=== PATIENT | male | born 1995 | race Caucasian/White ===

== ENCOUNTER 2019-02-01 20:23 | Emergency (ER) | payer SELFPAY ==
[~2019-02-01] VITALS: Ht 185.4 cm; Wt 129.3 kg
[2019-02-01] MEDS ORDERED: ACETAMINOPHEN 325 MG TAB ONE (21:08)
[2019-02-01] MEDS ORDERED: ACETAMINOPHEN 325 MG TAB PO ONE (21:15)
[2019-02-01 22:02] LABS: BILIRUBIN,URINE NEGATIVE (NEGATIVE); CLARITY,URINE SL CLOUDY (CLEAR); COLOR,URINE YELLOW (YELLOW); KETONES,URINE 1+ (NEGATIVE); LEUKOCYTE ESTERASE ,URINE NEGATIVE (NEGATIVE); NITRITE,URINE NEGATIVE (NEGATIVE); PROTEIN,URINE DIPSTICK TRACE (NEGATIVE); URINE UROBILINOGEN 0.2 mg/dL (0.2 - 1)
[2019-02-01 22:06] LABS: STREPTOCOCCUS GRP A ANTIGEN NEGATIVE (NEGATIVE)
[2019-02-01 22:16] LABS: INFLUENZAE A&B ANTIGEN (RAPID) NEGATIVE (NEGATIVE)
[2019-02-01 22:27] LABS: BACTERIA,URINE FEW /HPF; RBC,URINE 0-5 /HPF (0-5); WBC,URINE (MAN) 0-5 /HPF (0-5)
[2019-02-01 22:28] LABS: EPITHELIAL CELLS,URINE FEW /LPF; MUCUS,URINE MANY (RARE)
--- NOTE | 2019-02-01 22:33 | Diagnostic Imaging Report ---
EXAMINATION: PA and lateral views of the chest. COMPARISON: None CLINICAL HISTORY: Back pain, numbness, sore throat DISCUSSION: Lines/tubes: None. Lungs: The lungs are well inflated and clear. There is no evidence of pneumonia or pulmonary edema. Pleura: There is no pleural effusion or pneumothorax. Heart and mediastinum: Cardiomediastinal silhouette is unremarkable. Pulmonary vasculature is normal. Bones and soft tissues: No acute bony abnormalities. IMPRESSION: No acute cardiopulmonary abnormalities. Signed by: Dr. Ketan Velasquez M.D. on 02/01/2019 10:30 PM
== END 2019-02-01 23:57 | disposition home or self-care (01) ==
LOC: ER 20:23
DX: R50.9 Fever, unspecified (principal); B34.9 Viral infection, unspecified
CPT/HCPCS: 71046; 81001; 83518; 87070; 87086; 87400; 99284

== ENCOUNTER → 2019-12-12 | Outpatient (CLI) | payer OTHER ==
[~2019-12-12] MED LIST: IOPAMIDOL 370 MG/ML 200 ML INFUS..BTL INJ ONE; SODIUM CHLORIDE 0.9% 50ML 50 ML ONE
--- NOTE | 2019-12-12 09:18 | Diagnostic Imaging Report ---
EXAM: CT Abdomen and Pelvis WITH intravenous contrast INDICATION: Right abdominal pain COMPARISON: None. TECHNIQUE: Abdomen and pelvis were scanned utilizing a multidetector helical scanner from the lung base to the pubic symphysis after administration of IV contrast. Coronal and sagittal reformations were obtained. Routine protocol was performed. Scan was performed during portal venous phase. IV CONTRAST: 100mL of Isovue 370 ORAL CONTRAST: Water RADIATION DOSE: Total DLP: 918 mGy*cm Dose modulation, iterative reconstruction, and/or weight based adjustment of the mA/kV was utilized to reduce the radiation dose to as low as reasonably achievable. FINDINGS: LOWER THORAX: Normal. HEPATOBILIARY: Diffuse hepatic steatosis. No focal liver lesion. No biliary ductal dilation. Unremarkable gallbladder. SPLEEN: No splenomegaly. Splenules. PANCREAS: No focal masses or ductal dilatation. ADRENALS: No adrenal nodules. KIDNEYS/URETERS: No hydronephrosis, stones, or solid mass lesions. PELVIC ORGANS/BLADDER: Unremarkable. PERITONEUM / RETROPERITONEUM: No free air or fluid. LYMPH NODES: No lymphadenopathy. VESSELS: Unremarkable. GI TRACT: Mild diverticulosis. No CT evidence of diverticulitis. No abnormal bowel thickening. No bowel obstruction. BONES AND SOFT TISSUES: Unremarkable. IMPRESSION: Mild diverticulosis without CT evidence of diverticula at his. Diffuse hepatic steatosis. Signed by: Tonja Hennessy MD on 12/12/2019 9:15 AM
== END ==
LOC: CT 07:37
PROVIDERS: ATTEND Internal Medicine Gastroenterology
DX: R10.9 Unspecified abdominal pain (principal); K92.1 Melena
CPT/HCPCS: 74177; Q9967

== ENCOUNTER → 2019-12-15 | Day surgery (SDC) | payer OTHER ==
[~2019-12-15] MED LIST changes: +FENTANYL CITRATE/PF 100MCG/2 ML INJ ONE; +HYOSCYAMINE 0.125 MG TAB ONE; -IOPAMIDOL 370 MG/ML 200 ML INFUS..BTL INJ ONE; +KETAMINE HCL INJ 50 MG/ML 10 ML VIAL ONE; +LIDOCAINE HCL 2% LOCAL INJ 5 ML SDV VIAL INJ ONE; +METOCLOPRAMIDE HCL 10 MG/2ML VIAL ONE; +MIDAZOLAM HCL 2 MG/2 ML VIAL ONE; +PANTOPRAZOLE 40 MG 10ML VIAL ONE; +PROPOFOL IV EMULSION 10 MG/ML 20 ML VIAL ONE; -SODIUM CHLORIDE 0.9% 50ML 50 ML ONE
[2019-12-15 12:30] VITALS: BP 131/89
--- NOTE | 2020-02-07 05:01 | Operative Report ---
DATE OF PROCEDURE: 12/15/2019 SURGEON: Jorge A West MD PROCEDURE: EGD with biopsies and colonoscopy with polypectomy and biopsies. INDICATIONS FOR EGD: Abdominal pain, bloating, acid reflux. INDICATIONS FOR COLONOSCOPY: Abdominal pain, bloody loose stools. MEDICATIONS: The patient was done under MAC, please see anesthesiologist's note. PROCEDURE IN DETAIL: With the patient in left lateral decubitus position, a flexible fiberoptic Olympus gastroscope was introduced into the esophagus under direct visualization without any difficulty. There were some longitudinal furrows and some concentric rings noted in the esophagus suspicious for eosinophilic esophagitis and biopsies were obtained. Also, there were erosions noted in the distal esophagus. An approximately 3 mm nodule was noted at the GE junction, that was biopsied. The scope was then advanced with ease into the stomach traversing a small hiatal hernia. Mucosa overlying the antrum and the body revealed some patchy erythema and low-grade to moderate edema, and biopsies were obtained and sent to stain for H pylori. Pylorus was of normal contour and shape, it was intubated with ease and the scope was advanced all the way to the second portion of the duodenum. Mucosa overlying the proximal second portion appeared to be within normal limits. The duodenal bulb appeared somewhat nodular and biopsies were obtained. The scope was then withdrawn back into the stomach and retroflexed and mucosa overlying the fundus and the cardia appeared to be within normal limits. The scope was then straightened out. The stomach was decompressed. The scope was subsequently withdrawn. The patient tolerated the procedure well. IMPRESSION: 1. Rule out eosinophilic esophagitis. 2. Erosive distal esophagitis. 3. Approximately 3 mm nodule at GE junction, biopsied. 4. Small hiatal hernia. 5. Gastritis, biopsied. Biopsies sent to stain for Helicobacter pylori. 6. Nodular duodenal bulb biopsied. PLAN: Follow up histology. Initiate Protonix 40 mg one p.o. q.a.m. before meals and Carafate 1 g p.o. before meals t.i.d. and at bedtime. The patient was then turned around and after adequate lubrication of the anal canal, a flexible fiberoptic Olympus colonoscope was inserted into the rectum with ease and advanced all the way to the cecum. The ileocecal valve was intubated and the scope was advanced into the terminal ileum. Biopsies were obtained. The scope was then withdrawn back into the colon, and the scope was then withdrawn slowly. Mucosa overlying the ascending, transverse, descending, sigmoid, and rectum revealed some patchy mild inflammatory changes and multiple random biopsies were obtained. One polyp in the sigmoid colon was encountered, that was removed per hot snare polypectomy. The scope was then retroflexed into the distal rectum and small internal hemorrhoids were noted, none of which was actively bleeding. The scope was then straightened out, it was subsequently withdrawn after securing an adequate stool specimen, that was sent for the appropriate stool studies. The patient tolerated the procedure well. IMPRESSION: 1. Colitis, mild, patchy. 2. Sigmoid colon polyp, hot snared. 3. Proctitis, mild. 4. Internal hemorrhoids, none actively bleeding. PLAN: Follow up histology. Follow up stool studies. Initiate Bentyl 10 mg one p.o. t.i.d., VSL #3 one p.o. b.i.d. Jorge A West MD [facility] [place]/MOD[facility] /[id number] cc: Shawn Soto DO
== END | disposition home or self-care (01) ==
LOC: OR 10:10
PROVIDERS: ATTEND Internal Medicine Gastroenterology
DX: K29.70 Gastritis, unspecified, without bleeding (principal); K63.5 Polyp of colon; K29.80 Duodenitis without bleeding; K52.9 Noninfective gastroenteritis and colitis, unspecified; K21.9 Gastro-esophageal reflux disease without esophagitis; K22.10 Ulcer of esophagus without bleeding; K62.89 Other specified diseases of anus and rectum; K22.8 Other specified diseases of esophagus; K44.9 Diaphragmatic hernia without obstruction or gangrene; K64.8 Other hemorrhoids; E66.01 Morbid (severe) obesity due to excess calories; Z01.812 Encounter for preprocedural laboratory examination; Z11.59 Encounter for screening for other viral diseases; Z68.39 Body mass index [BMI] 39.0-39.9, adult
CPT/HCPCS: 43239; 45380; 45385; C9113; J2001; J2250; J2704; J2765; J3010; U0002